=== PATIENT | female | born 1950 | race Caucasian/White ===

== ENCOUNTER → 2021-10-29 | Outpatient (CLI) | payer MEDICARE | LOC: KOH-I 10-14 09:45 | DX: R26.89 Other abnormalities of gait and mobility (principal); R42 Dizziness and giddiness; E04.2 Nontoxic multinodular goiter; I65.21 Occlusion and stenosis of right carotid artery; R90.82 White matter disease, unspecified | CPT/HCPCS: 70551; 93880 ==